=== PATIENT | male | born 1985 | race Caucasian/White ===

== ENCOUNTER 2018-11-21 19:57 | Emergency (ER) | payer BC ==
[2018-11-21] MEDS ORDERED: Hydrocortisone Acetate 1% Crm 30 GM Tube ONE (20:30)
[2018-11-21] MEDS ORDERED: Cephalexin 500 MG Cap ONE (20:30)
[2018-11-21] MEDS ORDERED: Hydrocortisone 1% Crm 30 GM Tube TOP ONE (21:03)
--- NOTE | 2018-11-22 01:10 | ER ---
REASON FOR EMERGENCY ROOM VISIT: Insect bites. HISTORY: This 33-year-old man comes in accompanied by his after having experienced some sort of insect bite earlier today. Simultaneously, he was stung just above the left eye as well as the back of his left leg in the popliteal area. They went fishing this afternoon, and he began to experience some burning and erythema, particularly more noticeable in the left popliteal area. He has not had any fever. He has not had any respiratory symptoms. The itching and burning have subsided to a large extent. However, his is concerned because of the increased erythema that seemed to be somewhat alarming to her. PAST MEDICAL HISTORY: Unremarkable. REVIEW OF SYSTEMS: Pertinent positives and negatives as listed in the HPI. PHYSICAL EXAMINATION: VITAL SIGNS: He is afebrile. Blood pressure is 136/85, O2 sats are normal. HEENT: He has some mild erythema and puffiness, particularly noticed around the lateral aspect of his left periorbital region. This is not real prominent. NECK: Supple. CHEST: Clear. CARDIAC EXAMINATION: Regular rate without murmur. EXTREMITIES: He has an area of approximately 6 cm in diameter that is fairly well demarcated and consists of some erythema and possibly some increased warmth. This is where he was stung by the insect. There is no evidence of lymphangitis. IMPRESSION: Insect stings. This could have been of bee or wasp or hornet. I did not see evidence of the stinger remaining in his popliteal area or the periorbital area. Because of the rapidity with which the redness developed, I think this is more of a local reaction than it is cellulitis. Nonetheless, I cannot definitively distinguish between the two, and I felt it was safer to start him on some Keflex. I also recommended topical hydrocortisone. He is not having any symptoms now apart from the redness, and antihistamine such as Benadryl will probably be a good idea at least for the next day or so. This does not appear to be a particularly severe bite in terms of his symptoms. However, the appearance was what was most alarming. I do not think that anything such as systemic corticosteroids would be indicated for them at this time since he is not experiencing many symptoms. They understand and agree with this plan. All questions were answered. CHANA /[id number]
== END 2018-11-21 21:30 | disposition home or self-care (01) ==
LOC: LB.ED 19:57
DX: T63.481A Toxic effect of venom of other arthropod, accidental (unintentional), initial encounter (principal)
CPT/HCPCS: 99282; A9270

== ENCOUNTER 2020-05-08 14:16 | Emergency (ER) | payer BC ==
[2020-05-08] MEDS ORDERED: Acetaminophen 325 MG Tab PO ONE (15:15)
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
--- NOTE | 2020-05-09 07:43 | CT ---
Date of Service: 05/08/20 Clinical Data: head laceration UNENHANCED BRAIN CT: No priors. No masses or mass effect. No intracranial hemorrhage. No evidence of acute or subacute infarct. There are surgical stella with in the scalp in the occipital region. No fractures. IMPRESSION: No acute intracranial abnormalities. [id number] [facility]
== END 2020-05-08 15:40 | disposition home or self-care (01) ==
LOC: LB.ED 14:16
DX: S01.01XA Laceration without foreign body of scalp, initial encounter (principal); Z88.0 Allergy status to penicillin; V86.92XA Unspecified occupant of snowmobile injured in nontraffic accident, initial encounter
CPT/HCPCS: 12002; 70450; 99283-25; A9270-GY